=== PATIENT | male | born 2000 | race Caucasian/White ===

== ENCOUNTER 2024-06-28 15:37 | Outpatient (CLI) | payer OTHER, SELFPAY | END 2024-06-28 15:38 | disposition home or self-care (01) | PROVIDERS: PCP Family Medicine; Visit Provider Family Medicine | DX: E55.9 Vitamin D deficiency, unspecified (principal); R53.83 Other fatigue; F32.A Depression, unspecified; K58.9 Irritable bowel syndrome, unspecified | CPT/HCPCS: 80053; 82306; 84443 ==